=== PATIENT | female | born 1950 | race Caucasian/White ===

== ENCOUNTER → 2018-02-19 | Outpatient (CLI) | payer MEDICARE ==
[~2018-02-19] MED LIST: ASCO500 PO; CALCIT950 PO; CALCIUM/MAG/VIT D PO; CALMAGZIN PO; CHOL10002 PO; CURCUMIN PO; Coq-10100 MG PO; FISH1000 PO; GARLIC OIL PO; HYDCHL50 PO; HYDR1TAB94 PO; Hair, Skin & N1 EACH PO; LECITHIN400 MG PO; LISINOPRIL PO; LOSA50 PO; LOVA40 PO; Lovastatin10 MG PO; MAGOXI400 PO; MELA3 PO; METO25 PO; METO25ER PO; MULVITB&C PO; MULVITMIND PO; NAPR220 PO; NAPR250 PO; NAPR500 PO; NIAC500 PO; NIAC500ER PO; TOCO400 PO; TUMERIC PO; UBID100 PO; VITAMIN B COMPLEX PO; VITAMIN C PO; VITAMIN D PO; XARELTO10 MG PO; [UNRECOGNIZED DRUG - OTHER] PO; [UNRECOGNIZED DRUG - OTHER] PO
[2018-02-21 15:08] LABS: HPV 16 Negative (Negative); HPV 18 Negative (Negative); HPV OTHER HR TYPES Negative (Negative)
== END | disposition home or self-care (01) ==
LOC: LAB SHORT 17:29 → LAB 17:29
PROVIDERS: Nurse Practitioner Women's Health
DX: Z12.72 Encounter for screening for malignant neoplasm of vagina (principal); Z91.89 Other specified personal risk factors, not elsewhere classified
CPT/HCPCS: 87624; G0123

== ENCOUNTER → 2019-04-07 | Outpatient (CLI) | payer MEDICARE ==
[2019-04-08 15:07] LABS: HPV 16 Negative (Negative); HPV 18 Negative (Negative); HPV OTHER HR TYPES Negative (Negative)
== END ==
LOC: LAB SHORT 12:37 → LAB 12:37
PROVIDERS: Nurse Practitioner Women's Health
DX: Z12.72 Encounter for screening for malignant neoplasm of vagina (principal); Z91.89 Other specified personal risk factors, not elsewhere classified
CPT/HCPCS: 87624; G0123

== ENCOUNTER 2025-04-03 01:01 | Day surgery (SDC) | payer MEDICARE ==
[~2025-04-03 01:01] MED LIST changes: +ESTROGEN CREAM VAG
[2025-04-03] MEDS ORDERED: DAPTOmycin 600 MG in NS 50 ML IV SCH (06:00)
[2025-04-03 11:27] VITALS: BP 109/65
[2025-04-03] MEDS ORDERED: ASPI81CH PO (12:08)
[2025-04-03] MEDS ORDERED: ATOR80 PO (12:08)
[2025-04-03] MEDS ORDERED: ELDERBERRY350 MG PO (12:09)
[2025-04-03] MEDS ORDERED: CYCL10 PO (12:09)
[2025-04-03] MEDS ORDERED: CENTRUM SILVER1 EAC2 PO (12:09)
[2025-04-03] MEDS ORDERED: MERIBIN5 MG PO (12:09)
[2025-04-03] MEDS ORDERED: MAGNESIUM OXID500 MG PO (12:10)
[2025-04-03] MEDS ORDERED: UBID10 PO (12:10)
[2025-04-03] MEDS ORDERED: MELATONIN5 M1 PO (12:10)
[2025-04-03] MEDS ORDERED: PROBIOTIC1 EA14 PO (12:10)
[2025-04-03] MEDS ORDERED: VITAMIN B122500 MC1 PO (12:11)
[2025-04-03] MEDS ORDERED: VITAMIN D31250 MC2 PO (12:11)
[2025-04-03] MEDS ORDERED: TURMERIC500 M2 PO (12:11)
[2025-04-03] MEDS ORDERED: SUPER B-50 COM1 EACH PO (12:12)
[2025-04-03] MEDS ORDERED: C COMPLEX1000 M1 PO (12:12)
== END 2025-04-03 11:52 | disposition home or self-care (01) ==
LOC: ATC 01:01
DX: M46.26 Osteomyelitis of vertebra, lumbar region (principal); M48.061 Spinal stenosis, lumbar region without neurogenic claudication; I10 Essential (primary) hypertension; G47.33 Obstructive sleep apnea (adult) (pediatric); E78.5 Hyperlipidemia, unspecified; Z79.82 Long term (current) use of aspirin; Z79.899 Other long term (current) drug therapy; Z88.8 Allergy status to other drugs, medicaments and biological substances
CPT/HCPCS: 96365; J0878

== ENCOUNTER 2025-04-04 08:20 | Day surgery (SDC) | payer MEDICARE ==
[~2025-04-04 08:20] MED LIST changes: +ASPI81CH PO; +ATOR80 PO; +C COMPLEX1000 M1 PO; +CENTRUM SILVER1 EAC2 PO; +CYCL10 PO; +DAPTOmycin 600 MG in NS 50 ML IV SCH; +ELDERBERRY350 MG PO; +MAGNESIUM OXID500 MG PO; +MELATONIN5 M1 PO; +MERIBIN5 MG PO; +PROBIOTIC1 EA14 PO; +SUPER B-50 COM1 EACH PO; +TURMERIC500 M2 PO; +UBID10 PO; +VITAMIN B122500 MC1 PO; +VITAMIN D31250 MC2 PO
[2025-04-04 11:23] VITALS: BP 124/65
== END 2025-04-04 11:49 | disposition home or self-care (01) ==
LOC: ATC 08:20
DX: M46.20 Osteomyelitis of vertebra, site unspecified (principal); M48.062 Spinal stenosis, lumbar region with neurogenic claudication; G47.33 Obstructive sleep apnea (adult) (pediatric); I10 Essential (primary) hypertension; M19.90 Unspecified osteoarthritis, unspecified site; G89.29 Other chronic pain; M54.9 Dorsalgia, unspecified; E78.5 Hyperlipidemia, unspecified; E66.9 Obesity, unspecified; Z79.2 Long term (current) use of antibiotics; Z79.82 Long term (current) use of aspirin; Z79.899 Other long term (current) drug therapy; Z88.8 Allergy status to other drugs, medicaments and biological substances; Z96.653 Presence of artificial knee joint, bilateral; Z98.1 Arthrodesis status
CPT/HCPCS: 96365; J0878

== ENCOUNTER 2025-04-05 00:16 | Day surgery (SDC) | payer MEDICARE ==
[~2025-04-05 00:16] MED LIST changes: -DAPTOmycin 600 MG in NS 50 ML IV SCH
[2025-04-05] MEDS ORDERED: DAPTOmycin 600 MG in NS 50 ML IV SCH (06:00)
[2025-04-05 11:31] VITALS: BP 118/57
== END 2025-04-05 11:50 | disposition home or self-care (01) ==
LOC: ATC 00:16
DX: M46.26 Osteomyelitis of vertebra, lumbar region (principal); M48.062 Spinal stenosis, lumbar region with neurogenic claudication; I10 Essential (primary) hypertension; G47.33 Obstructive sleep apnea (adult) (pediatric); E78.5 Hyperlipidemia, unspecified; M19.90 Unspecified osteoarthritis, unspecified site; E66.9 Obesity, unspecified; Z79.82 Long term (current) use of aspirin; Z79.899 Other long term (current) drug therapy; Z88.8 Allergy status to other drugs, medicaments and biological substances; Z90.710 Acquired absence of both cervix and uterus
CPT/HCPCS: 96365; J0878

== ENCOUNTER 2025-04-06 01:30 | Day surgery (SDC) | payer MEDICARE ==
[2025-04-06] MEDS ORDERED: DAPTOmycin 600 MG in NS 50 ML IV SCH (06:00)
[2025-04-06] MEDS ORDERED: CefTRIAXone Sodium 2,000 MG in NS 100 ML IV SCH (06:00)
[2025-04-06 11:38] VITALS: BP 120/75
== END 2025-04-06 12:01 | disposition home or self-care (01) ==
LOC: ATC 01:30
DX: M46.26 Osteomyelitis of vertebra, lumbar region (principal); E78.5 Hyperlipidemia, unspecified; I10 Essential (primary) hypertension; Z88.8 Allergy status to other drugs, medicaments and biological substances
CPT/HCPCS: 96365; 96368; J0696; J0878

== ENCOUNTER 2025-04-07 00:52 | Day surgery (SDC) | payer MEDICARE ==
[2025-04-07] MEDS ORDERED: CefTRIAXone Sodium 2,000 MG in NS 100 ML IV SCH (01:00)
[2025-04-07] MEDS ORDERED: DAPTOmycin 600 MG in NS 50 ML IV SCH (06:00)
[2025-04-07 11:30] VITALS: BP 135/65
[2025-04-07 12:19] LABS: BASOPHILS ABSOLUTE AUTO 0.07 K/mm3 (0.00-0.23); BASOPHILS PERCENT AUTO 1 % (0-2); EOSINOPHILS ABSOLUTE AUTO 0.27 K/mm3 (0.00-0.68); EOSINOPHILS PERCENT AUTO 4 % (0-6); Hematocrit 31.2 % (33.0-51.0); Hemoglobin 9.9 g/dL (11.5-16.0); IMMATURE GRAN ABSOLUTE AUTO 0.02 K/mm3 (0.00-0.10); IMMATURE GRAN PERCENT AUTO 0 % (0-1); LYMPHOCYTES ABSOLUTE AUTO 1.77 K/mm3 (0.84-5.20); LYMPHOCYTES PERCENT AUTO 25 % (21-46); MONOCYTES ABSOLUTE AUTO 0.58 K/mm3 (0.16-1.47); MONOCYTES PERCENT AUTO 8 % (4-13); Mean Corpuscular HGB Conc 31.7 g/dL (31.5-36.5); Mean Corpuscular Volume 83 fL (80-100); NEUTROPHILS ABSOLUTE AUTO 4.26 K/mm3 (1.96-9.15); NEUTROPHILS PERCENT AUTO 61 % (41-73); NRBC ABSOLUTE 0.00 K/mm3 (0.00-0.02); NRBC Auto 0.0 /100 WBC (0.0-0.2); Platelet Count 358 K/mm3 (150-400); RDW Coefficient Variation 14.1 % (11.7-14.2); RDW Standard Deviation 42.9 fL (35.1-46.3)
[2025-04-07 12:40] LABS: C-REACTIVE PROTEIN, EXT RANGE 0.736 mg/dL (0.000-0.300)
[2025-04-07 12:44] LABS: Alanine Aminotransfer (ALT/SGP 33.0 U/L (12-78); Albumin, Blood 3.2 g/dL (3.4-5.0); Albumin/Globulin Ratio 0.9 (0.8-1.8); Anion Gap 5.0 mmol/L (3-11); Aspartate Aminotrans (AST/SGOT 27.0 U/L (12-37); Bilirubin, Total 0.3 mg/dL (0.1-1.0); Blood Urea Nitrogen 32.0 mg/dL (8-24); CO2, Blood 28.0 mmol/L (21-32); Calcium, Blood 9.7 mg/dL (8.5-10.1); Chloride, Blood 109.0 mmol/L (98-108); Creatinine, Blood 0.74 mg/dL (0.40-1.00); Globulin, Blood 3.5 g/dL (2.2-4.0); Glucose, Blood 100.0 mg/dL (70-99); Potassium, Blood 4.1 mmol/L (3.5-5.5); Sodium, Blood 138.0 mmol/L (136-145); Total Protein, Blood 6.7 g/dL (6.4-8.2)
--- NOTE | 2025-04-07 13:12 | NUR ---
Lab results from today faxed to Dr. Stewart's office.
== END 2025-04-07 11:57 | disposition home or self-care (01) ==
LOC: ATC 00:52
PROVIDERS: Internal Medicine Infectious Disease
DX: M46.26 Osteomyelitis of vertebra, lumbar region (principal); M48.061 Spinal stenosis, lumbar region without neurogenic claudication; I10 Essential (primary) hypertension; G47.33 Obstructive sleep apnea (adult) (pediatric); E78.5 Hyperlipidemia, unspecified; Z79.82 Long term (current) use of aspirin; Z79.899 Other long term (current) drug therapy; Z88.8 Allergy status to other drugs, medicaments and biological substances; Z90.710 Acquired absence of both cervix and uterus
CPT/HCPCS: 80053; 82550; 85025; 86140; 96365; 96368; J0696; J0878

== ENCOUNTER 2025-04-08 03:16 | Day surgery (SDC) | payer MEDICARE ==
[2025-04-08] MEDS ORDERED: CefTRIAXone Sodium 2,000 MG in NS 100 ML IV SCH (08:35)
[2025-04-08] MEDS ORDERED: DAPTOmycin 600 MG in NS 50 ML IV SCH (08:35)
[2025-04-08 11:40] VITALS: BP 113/63
== END 2025-04-08 12:06 | disposition home or self-care (01) ==
LOC: ATC 03:16
DX: M46.20 Osteomyelitis of vertebra, site unspecified (principal); M48.061 Spinal stenosis, lumbar region without neurogenic claudication; G47.33 Obstructive sleep apnea (adult) (pediatric); I10 Essential (primary) hypertension; M19.90 Unspecified osteoarthritis, unspecified site; G89.29 Other chronic pain; M54.9 Dorsalgia, unspecified; E78.5 Hyperlipidemia, unspecified; E66.9 Obesity, unspecified; Z79.82 Long term (current) use of aspirin; Z79.899 Other long term (current) drug therapy; Z88.8 Allergy status to other drugs, medicaments and biological substances; Z96.641 Presence of right artificial hip joint; Z96.653 Presence of artificial knee joint, bilateral; Z98.1 Arthrodesis status
CPT/HCPCS: 96365; 96368; J0696; J0878

== ENCOUNTER 2025-04-09 08:13 | Day surgery (SDC) | payer MEDICARE ==
[~2025-04-09 08:13] MED LIST changes: +CefTRIAXone Sodium 2,000 MG in NS 100 ML IV SCH; +DAPTOmycin 600 MG in NS 50 ML IV SCH
[2025-04-09 11:24] VITALS: BP 133/69
== END 2025-04-09 11:52 | disposition home or self-care (01) ==
LOC: ATC 08:13
DX: M46.26 Osteomyelitis of vertebra, lumbar region (principal); M48.061 Spinal stenosis, lumbar region without neurogenic claudication; I10 Essential (primary) hypertension; E78.5 Hyperlipidemia, unspecified; G47.33 Obstructive sleep apnea (adult) (pediatric); M19.90 Unspecified osteoarthritis, unspecified site; Z79.82 Long term (current) use of aspirin; Z79.899 Other long term (current) drug therapy; Z88.8 Allergy status to other drugs, medicaments and biological substances
CPT/HCPCS: 96365; 96368; J0696; J0878

== ENCOUNTER 2025-04-10 01:44 | Day surgery (SDC) | payer MEDICARE ==
[~2025-04-10 01:44] MED LIST changes: -DAPTOmycin 600 MG in NS 50 ML IV SCH
[2025-04-10] MEDS ORDERED: DAPTOmycin 600 MG in NS 50 ML IV SCH (06:00)
[2025-04-10 11:40] VITALS: BP 121/66
== END 2025-04-10 12:00 | disposition home or self-care (01) ==
LOC: ATC 01:44
DX: M46.20 Osteomyelitis of vertebra, site unspecified (principal); T81.49XA Infection following a procedure, other surgical site, initial encounter; T81.31XA Disruption of external operation (surgical) wound, not elsewhere classified, initial encounter; M48.061 Spinal stenosis, lumbar region without neurogenic claudication; G47.33 Obstructive sleep apnea (adult) (pediatric); I10 Essential (primary) hypertension; Z79.82 Long term (current) use of aspirin; Z79.899 Other long term (current) drug therapy; Z79.1 Long term (current) use of non-steroidal anti-inflammatories (NSAID); Z85.828 Personal history of other malignant neoplasm of skin; Z88.8 Allergy status to other drugs, medicaments and biological substances; Z96.653 Presence of artificial knee joint, bilateral
CPT/HCPCS: 96365; 96368; J0696; J0878

== ENCOUNTER 2025-04-11 00:32 | Day surgery (SDC) | payer MEDICARE ==
[~2025-04-11 00:32] MED LIST changes: -CefTRIAXone Sodium 2,000 MG in NS 100 ML IV SCH
[2025-04-11] MEDS ORDERED: CefTRIAXone Sodium 2,000 MG in NS 100 ML IV SCH (01:00)
[2025-04-11] MEDS ORDERED: DAPTOmycin 600 MG in NS 50 ML IV SCH (06:00)
[2025-04-11 11:30] VITALS: BP 123/68
[2025-04-12] MEDS ORDERED: CEFTRIAXONE2 G1 IV (11:41)
[2025-04-12] MEDS ORDERED: DAPTOMYCIN700 MG/100 IV (11:41)
== END 2025-04-11 11:50 | disposition home or self-care (01) ==
LOC: ATC 00:32
DX: M46.26 Osteomyelitis of vertebra, lumbar region (principal); M48.061 Spinal stenosis, lumbar region without neurogenic claudication; G47.33 Obstructive sleep apnea (adult) (pediatric); I10 Essential (primary) hypertension; G89.29 Other chronic pain; M54.9 Dorsalgia, unspecified; M19.90 Unspecified osteoarthritis, unspecified site; E66.9 Obesity, unspecified; Z79.82 Long term (current) use of aspirin; Z79.899 Other long term (current) drug therapy; Z88.8 Allergy status to other drugs, medicaments and biological substances; Z96.641 Presence of right artificial hip joint; Z96.653 Presence of artificial knee joint, bilateral; Z98.1 Arthrodesis status
CPT/HCPCS: 96365; 96368; J0696; J0878

== ENCOUNTER 2025-04-12 03:49 | Day surgery (SDC) | payer MEDICARE ==
[~2025-04-12 03:49] MED LIST changes: +CefTRIAXone Sodium 2,000 MG in NS 100 ML IV SCH
[2025-04-12] MEDS ORDERED: DAPTOmycin 600 MG in NS 50 ML IV SCH (06:00)
[2025-04-12 11:39] VITALS: BP 117/67
[2025-04-12] MEDS ORDERED: CEFTRIAXONE2 G1 IV (11:41)
[2025-04-12] MEDS ORDERED: DAPTOMYCIN700 MG/100 IV (11:41)
== END 2025-04-12 12:05 | disposition home or self-care (01) ==
LOC: ATC 03:49
DX: M46.26 Osteomyelitis of vertebra, lumbar region (principal); B96.3 Hemophilus influenzae [H. influenzae] as the cause of diseases classified elsewhere; M48.061 Spinal stenosis, lumbar region without neurogenic claudication; G47.33 Obstructive sleep apnea (adult) (pediatric); I10 Essential (primary) hypertension; M19.90 Unspecified osteoarthritis, unspecified site; G89.29 Other chronic pain; M54.9 Dorsalgia, unspecified; E78.5 Hyperlipidemia, unspecified; E66.9 Obesity, unspecified; Z79.82 Long term (current) use of aspirin; Z79.899 Other long term (current) drug therapy; Z88.8 Allergy status to other drugs, medicaments and biological substances; Z96.641 Presence of right artificial hip joint; Z96.653 Presence of artificial knee joint, bilateral; Z98.1 Arthrodesis status
CPT/HCPCS: 96365; 96368; J0696; J0878

== ENCOUNTER 2025-04-13 00:46 | Day surgery (SDC) | payer MEDICARE ==
[~2025-04-13 00:46] MED LIST changes: +CEFTRIAXONE2 G1 IV; -CefTRIAXone Sodium 2,000 MG in NS 100 ML IV SCH; +DAPTOMYCIN700 MG/100 IV
[2025-04-13] MEDS ORDERED: CefTRIAXone Sodium 2,000 MG in NS 100 ML IV SCH (06:00)
[2025-04-13] MEDS ORDERED: DAPTOmycin 600 MG in NS 50 ML IV SCH (06:00)
[2025-04-13 11:31] VITALS: BP 132/70
== END 2025-04-13 12:08 | disposition home or self-care (01) ==
LOC: ATC 00:46
DX: M46.26 Osteomyelitis of vertebra, lumbar region (principal); I10 Essential (primary) hypertension; E78.5 Hyperlipidemia, unspecified
CPT/HCPCS: 96365; 96368; J0696; J0878

== ENCOUNTER 2025-04-14 02:40 | Day surgery (SDC) | payer MEDICARE ==
[2025-04-14] MEDS ORDERED: CefTRIAXone Sodium 2,000 MG in NS 100 ML IV SCH (06:00)
[2025-04-14] MEDS ORDERED: DAPTOmycin 600 MG in NS 50 ML IV SCH (06:00)
[2025-04-14 11:49] VITALS: BP 148/73
[2025-04-14 12:21] LABS: BASOPHILS ABSOLUTE AUTO 0.05 K/mm3 (0.00-0.23); BASOPHILS PERCENT AUTO 1 % (0-2); EOSINOPHILS ABSOLUTE AUTO 0.34 K/mm3 (0.00-0.68); EOSINOPHILS PERCENT AUTO 6 % (0-6); Hematocrit 32.0 % (33.0-51.0); Hemoglobin 9.9 g/dL (11.5-16.0); IMMATURE GRAN ABSOLUTE AUTO 0.01 K/mm3 (0.00-0.10); IMMATURE GRAN PERCENT AUTO 0 % (0-1); LYMPHOCYTES ABSOLUTE AUTO 1.87 K/mm3 (0.84-5.20); LYMPHOCYTES PERCENT AUTO 31 % (21-46); MONOCYTES ABSOLUTE AUTO 0.53 K/mm3 (0.16-1.47); MONOCYTES PERCENT AUTO 9 % (4-13); Mean Corpuscular HGB Conc 30.9 g/dL (31.5-36.5); Mean Corpuscular Volume 83 fL (80-100); NEUTROPHILS ABSOLUTE AUTO 3.34 K/mm3 (1.96-9.15); NEUTROPHILS PERCENT AUTO 54 % (41-73); NRBC ABSOLUTE 0.00 K/mm3 (0.00-0.02); NRBC Auto 0.0 /100 WBC (0.0-0.2); Platelet Count 322 K/mm3 (150-400); RDW Coefficient Variation 14.2 % (11.7-14.2); RDW Standard Deviation 42.3 fL (35.1-46.3)
[2025-04-14 12:48] LABS: Alanine Aminotransfer (ALT/SGP 34.0 U/L (12-78); Albumin, Blood 3.4 g/dL (3.4-5.0); Albumin/Globulin Ratio 1.0 (0.8-1.8); Anion Gap 9.0 mmol/L (3-11); Aspartate Aminotrans (AST/SGOT 26.0 U/L (12-37); Bilirubin, Total 0.3 mg/dL (0.1-1.0); Blood Urea Nitrogen 30.0 mg/dL (8-24); CO2, Blood 27.0 mmol/L (21-32); Calcium, Blood 9.6 mg/dL (8.5-10.1); Chloride, Blood 107.0 mmol/L (98-108); Creatinine, Blood 0.76 mg/dL (0.40-1.00); Globulin, Blood 3.4 g/dL (2.2-4.0); Glucose, Blood 100.0 mg/dL (70-99); Potassium, Blood 3.9 mmol/L (3.5-5.5); Sodium, Blood 139.0 mmol/L (136-145); Total Protein, Blood 6.8 g/dL (6.4-8.2)
--- NOTE | 2025-04-14 17:32 | NUR ---
Lab results from today faxed to Dr. Stewart's office.
== END 2025-04-14 12:15 | disposition home or self-care (01) ==
LOC: ATC 02:40
PROVIDERS: Internal Medicine Infectious Disease
DX: M46.26 Osteomyelitis of vertebra, lumbar region (principal); I10 Essential (primary) hypertension
CPT/HCPCS: 80053; 82550; 85025; 96365; 96368; J0696; J0878

== ENCOUNTER 2025-04-15 07:44 | Day surgery (SDC) | payer MEDICARE ==
[2025-04-15] MEDS ORDERED: CefTRIAXone Sodium 2,000 MG in NS 100 ML IV SCH (08:15)
[2025-04-15] MEDS ORDERED: DAPTOmycin 600 MG in NS 50 ML IV SCH (08:20)
[2025-04-15 11:32] VITALS: BP 128/64
== END 2025-04-15 11:51 | disposition home or self-care (01) ==
LOC: ATC 07:44
DX: M46.26 Osteomyelitis of vertebra, lumbar region (principal); I10 Essential (primary) hypertension; E78.5 Hyperlipidemia, unspecified; G47.33 Obstructive sleep apnea (adult) (pediatric); E66.9 Obesity, unspecified; Z79.82 Long term (current) use of aspirin; Z79.899 Other long term (current) drug therapy; Z88.8 Allergy status to other drugs, medicaments and biological substances; Z90.710 Acquired absence of both cervix and uterus; M48.062 Spinal stenosis, lumbar region with neurogenic claudication
CPT/HCPCS: 96365; 96368; J0696; J0878

== ENCOUNTER 2025-04-16 00:55 | Day surgery (SDC) | payer MEDICARE ==
[2025-04-16] MEDS ORDERED: CefTRIAXone Sodium 2,000 MG in NS 100 ML IV SCH (01:00)
[2025-04-16] MEDS ORDERED: DAPTOmycin 600 MG in NS 50 ML IV SCH (06:00)
[2025-04-16 11:29] VITALS: BP 142/59
== END 2025-04-16 11:51 | disposition home or self-care (01) ==
LOC: ATC 00:55
DX: M46.26 Osteomyelitis of vertebra, lumbar region (principal); M48.062 Spinal stenosis, lumbar region with neurogenic claudication; E78.5 Hyperlipidemia, unspecified; I10 Essential (primary) hypertension; G47.33 Obstructive sleep apnea (adult) (pediatric); M19.90 Unspecified osteoarthritis, unspecified site; E66.9 Obesity, unspecified; Z79.899 Other long term (current) drug therapy; Z88.8 Allergy status to other drugs, medicaments and biological substances
CPT/HCPCS: 96365; 96368; J0696; J0878

== ENCOUNTER 2025-04-17 02:23 | Day surgery (SDC) | payer MEDICARE ==
[~2025-04-17 02:23] MED LIST changes: +CefTRIAXone Sodium 2,000 MG in NS 100 ML IV SCH
[2025-04-17] MEDS ORDERED: DAPTOmycin 600 MG in NS 50 ML IV SCH (06:00)
[2025-04-17 11:33] VITALS: BP 137/68
== END 2025-04-17 11:56 | disposition home or self-care (01) ==
LOC: ATC 02:23
DX: M46.20 Osteomyelitis of vertebra, site unspecified (principal); I10 Essential (primary) hypertension; E66.9 Obesity, unspecified; G47.33 Obstructive sleep apnea (adult) (pediatric); Z79.82 Long term (current) use of aspirin; Z79.899 Other long term (current) drug therapy; Z88.8 Allergy status to other drugs, medicaments and biological substances
CPT/HCPCS: 96365; 96368; J0696; J0878

== ENCOUNTER 2025-04-18 01:55 | Day surgery (SDC) | payer MEDICARE ==
[~2025-04-18 01:55] MED LIST changes: -CefTRIAXone Sodium 2,000 MG in NS 100 ML IV SCH
[2025-04-18] MEDS ORDERED: DAPTOmycin 600 MG in NS 50 ML IV SCH (06:00)
[2025-04-18] MEDS ORDERED: CefTRIAXone Sodium 2,000 MG in NS 100 ML IV SCH (06:00)
[2025-04-18 11:26] VITALS: BP 139/69
== END 2025-04-18 11:51 | disposition home or self-care (01) ==
LOC: ATC 01:55
DX: M46.26 Osteomyelitis of vertebra, lumbar region (principal); M48.062 Spinal stenosis, lumbar region with neurogenic claudication; I10 Essential (primary) hypertension; G47.33 Obstructive sleep apnea (adult) (pediatric); E78.5 Hyperlipidemia, unspecified; E66.9 Obesity, unspecified; Z79.82 Long term (current) use of aspirin; Z79.899 Other long term (current) drug therapy; Z88.8 Allergy status to other drugs, medicaments and biological substances
CPT/HCPCS: 96365; 96368; J0696; J0878

== ENCOUNTER 2025-04-19 01:55 | Day surgery (SDC) | payer MEDICARE ==
[2025-04-19] MEDS ORDERED: CefTRIAXone Sodium 2,000 MG in NS 100 ML IV SCH (06:00)
[2025-04-19] MEDS ORDERED: DAPTOmycin 600 MG in NS 50 ML IV SCH (06:00)
[2025-04-19 11:25] VITALS: BP 139/60
== END 2025-04-19 11:57 | disposition home or self-care (01) ==
LOC: ATC 01:55
DX: M46.26 Osteomyelitis of vertebra, lumbar region (principal); I10 Essential (primary) hypertension; E78.5 Hyperlipidemia, unspecified; Z88.8 Allergy status to other drugs, medicaments and biological substances
CPT/HCPCS: 96365; 96368; J0696; J0878

== ENCOUNTER 2025-04-20 01:48 | Day surgery (SDC) | payer MEDICARE ==
[~2025-04-20 01:48] MED LIST changes: +CefTRIAXone Sodium 2,000 MG in NS 100 ML IV SCH
[2025-04-20] MEDS ORDERED: DAPTOmycin 600 MG in NS 50 ML IV SCH (06:00)
[2025-04-20 11:28] VITALS: BP 129/57
== END 2025-04-20 12:08 | disposition home or self-care (01) ==
LOC: ATC 01:48
DX: M46.26 Osteomyelitis of vertebra, lumbar region (principal); I10 Essential (primary) hypertension; E78.5 Hyperlipidemia, unspecified; G47.33 Obstructive sleep apnea (adult) (pediatric); Z79.899 Other long term (current) drug therapy; Z88.8 Allergy status to other drugs, medicaments and biological substances; Z90.710 Acquired absence of both cervix and uterus; D64.9 Anemia, unspecified; R73.01 Impaired fasting glucose
CPT/HCPCS: 36415; 82728; 83036; 83540; 83550; 85025; 96365; 96368; J0696; J0878

== ENCOUNTER 2025-04-21 00:24 | Day surgery (SDC) | payer MEDICARE ==
[~2025-04-21 00:24] MED LIST changes: -CefTRIAXone Sodium 2,000 MG in NS 100 ML IV SCH
[2025-04-21] MEDS ORDERED: CefTRIAXone Sodium 2,000 MG in NS 100 ML IV SCH (01:00)
[2025-04-21] MEDS ORDERED: DAPTOmycin 600 MG in NS 50 ML IV SCH (06:00)
[2025-04-21 11:30] VITALS: BP 146/60
[2025-04-21 12:52] LABS: BASOPHILS ABSOLUTE AUTO 0.06 K/mm3 (0.00-0.23); BASOPHILS PERCENT AUTO 1 % (0-2); EOSINOPHILS ABSOLUTE AUTO 0.30 K/mm3 (0.00-0.68); EOSINOPHILS PERCENT AUTO 5 % (0-6); Hematocrit 32.2 % (33.0-51.0); Hemoglobin 9.8 g/dL (11.5-16.0); IMMATURE GRAN ABSOLUTE AUTO 0.01 K/mm3 (0.00-0.10); IMMATURE GRAN PERCENT AUTO 0 % (0-1); LYMPHOCYTES ABSOLUTE AUTO 1.59 K/mm3 (0.84-5.20); LYMPHOCYTES PERCENT AUTO 29 % (21-46); MONOCYTES ABSOLUTE AUTO 0.48 K/mm3 (0.16-1.47); MONOCYTES PERCENT AUTO 9 % (4-13); Mean Corpuscular HGB Conc 30.4 g/dL (31.5-36.5); Mean Corpuscular Volume 84 fL (80-100); NEUTROPHILS ABSOLUTE AUTO 3.07 K/mm3 (1.96-9.15); NEUTROPHILS PERCENT AUTO 56 % (41-73); NRBC ABSOLUTE 0.00 K/mm3 (0.00-0.02); NRBC Auto 0.0 /100 WBC (0.0-0.2); Platelet Count 270 K/mm3 (150-400); RDW Coefficient Variation 14.6 % (11.7-14.2); RDW Standard Deviation 44.3 fL (35.1-46.3)
[2025-04-21 13:38] LABS: Alanine Aminotransfer (ALT/SGP 35 U/L (12-78); Albumin, Blood 3.3 g/dL (3.4-5.0); Albumin/Globulin Ratio 1.0 (0.8-1.8); Anion Gap 6 mmol/L (3-11); Aspartate Aminotrans (AST/SGOT 29 U/L (12-37); Bilirubin, Total 0.2 mg/dL (0.1-1.0); Blood Urea Nitrogen 27 mg/dL (8-24); C-REACTIVE PROTEIN, EXT RANGE <0.290 mg/dL (0.000-0.300); CO2, Blood 30 mmol/L (21-32); Calcium, Blood 9.2 mg/dL (8.5-10.1); Chloride, Blood 109 mmol/L (98-108); Creatinine, Blood 0.72 mg/dL (0.40-1.00); Globulin, Blood 3.2 g/dL (2.2-4.0); Glucose, Blood 102 mg/dL (70-99); Potassium, Blood 4.1 mmol/L (3.5-5.5); Sodium, Blood 141 mmol/L (136-145); Total Protein, Blood 6.5 g/dL (6.4-8.2)
== END 2025-04-21 12:03 | disposition home or self-care (01) ==
LOC: ATC 00:24
PROVIDERS: Internal Medicine Infectious Disease
DX: M46.26 Osteomyelitis of vertebra, lumbar region (principal); E78.5 Hyperlipidemia, unspecified; I10 Essential (primary) hypertension; Z88.8 Allergy status to other drugs, medicaments and biological substances; Z79.899 Other long term (current) drug therapy
CPT/HCPCS: 36591; 80053; 82550; 85025; 86140; 96365; 96368; J0696; J0878

== ENCOUNTER 2025-04-22 02:53 | Day surgery (SDC) | payer MEDICARE ==
[~2025-04-22 02:53] MED LIST changes: +CefTRIAXone Sodium 2,000 MG in NS 100 ML IV SCH
[2025-04-22] MEDS ORDERED: DAPTOmycin 600 MG in NS 50 ML IV SCH (06:00)
[2025-04-22 11:34] VITALS: BP 128/72
== END 2025-04-22 11:57 | disposition home or self-care (01) ==
LOC: ATC 02:53
DX: M46.26 Osteomyelitis of vertebra, lumbar region (principal); M48.061 Spinal stenosis, lumbar region without neurogenic claudication; G47.33 Obstructive sleep apnea (adult) (pediatric); I10 Essential (primary) hypertension; G89.29 Other chronic pain; M54.9 Dorsalgia, unspecified; E78.5 Hyperlipidemia, unspecified; M19.90 Unspecified osteoarthritis, unspecified site; E66.9 Obesity, unspecified; Z79.82 Long term (current) use of aspirin; Z79.899 Other long term (current) drug therapy; Z88.8 Allergy status to other drugs, medicaments and biological substances; Z96.653 Presence of artificial knee joint, bilateral; D64.9 Anemia, unspecified
CPT/HCPCS: 82274; 96365; 96368; 99211; J0696; J0878

== ENCOUNTER → 2025-04-22 | Outpatient (CLI) | payer MEDICARE ==
[2025-04-22 14:25] LABS: Stool Occult Bld Immuno 1 Negative (NEGATIVE)
== END | disposition home or self-care (01) ==
LOC: LAB SHORT 07:25 → LAB 07:25
PROVIDERS: Family Medicine
DX: D64.9 Anemia, unspecified (principal)
CPT/HCPCS: 82274

== ENCOUNTER 2025-04-23 01:17 | Day surgery (SDC) | payer MEDICARE ==
[~2025-04-23 01:17] MED LIST changes: -CefTRIAXone Sodium 2,000 MG in NS 100 ML IV SCH
[2025-04-23] MEDS ORDERED: CefTRIAXone Sodium 2,000 MG in NS 100 ML IV SCH (06:00)
[2025-04-23] MEDS ORDERED: DAPTOmycin 600 MG in NS 50 ML IV SCH (06:00)
[2025-04-23 11:25] VITALS: BP 129/74
== END 2025-04-23 11:50 | disposition home or self-care (01) ==
LOC: ATC 01:17
DX: M46.26 Osteomyelitis of vertebra, lumbar region (principal); M48.062 Spinal stenosis, lumbar region with neurogenic claudication; I10 Essential (primary) hypertension; G47.33 Obstructive sleep apnea (adult) (pediatric); M19.90 Unspecified osteoarthritis, unspecified site; E78.5 Hyperlipidemia, unspecified; E66.9 Obesity, unspecified; Z79.82 Long term (current) use of aspirin; Z79.899 Other long term (current) drug therapy; Z88.8 Allergy status to other drugs, medicaments and biological substances; Z90.710 Acquired absence of both cervix and uterus
CPT/HCPCS: 99211; J0696; J0878

== ENCOUNTER 2025-04-24 00:10 | Day surgery (SDC) | payer MEDICARE ==
[2025-04-24] MEDS ORDERED: DAPTOmycin 600 MG in NS 50 ML IV SCH (06:00)
[2025-04-24] MEDS ORDERED: CefTRIAXone Sodium 2,000 MG in NS 100 ML IV SCH (09:25)
[2025-04-24 11:28] VITALS: BP 128/65
== END 2025-04-24 11:48 | disposition home or self-care (01) ==
LOC: ATC 00:10
DX: M46.26 Osteomyelitis of vertebra, lumbar region (principal); M48.062 Spinal stenosis, lumbar region with neurogenic claudication; I10 Essential (primary) hypertension; E78.5 Hyperlipidemia, unspecified; G47.33 Obstructive sleep apnea (adult) (pediatric); Z79.82 Long term (current) use of aspirin; Z79.899 Other long term (current) drug therapy; Z88.8 Allergy status to other drugs, medicaments and biological substances; Z90.710 Acquired absence of both cervix and uterus
CPT/HCPCS: 96365; 96368; J0696; J0878

== ENCOUNTER 2025-04-25 01:30 | Day surgery (SDC) | payer MEDICARE ==
[~2025-04-25 01:30] MED LIST changes: +CefTRIAXone Sodium 2,000 MG in NS 100 ML IV SCH
[2025-04-25] MEDS ORDERED: DAPTOmycin 600 MG in NS 50 ML IV SCH (06:00)
[2025-04-25 11:32] VITALS: BP 122/66
== END 2025-04-25 12:13 | disposition home or self-care (01) ==
LOC: ATC 01:30
DX: M46.26 Osteomyelitis of vertebra, lumbar region (principal); M48.062 Spinal stenosis, lumbar region with neurogenic claudication; I10 Essential (primary) hypertension; E78.5 Hyperlipidemia, unspecified; G47.33 Obstructive sleep apnea (adult) (pediatric); E66.9 Obesity, unspecified; Z79.82 Long term (current) use of aspirin; Z79.899 Other long term (current) drug therapy; Z88.8 Allergy status to other drugs, medicaments and biological substances; Z90.710 Acquired absence of both cervix and uterus
CPT/HCPCS: 96365; 96368; J0696; J0878

== ENCOUNTER 2025-04-26 01:06 | Day surgery (SDC) | payer MEDICARE ==
[2025-04-26] MEDS ORDERED: DAPTOmycin 600 MG in NS 50 ML IV SCH (06:00)
[2025-04-26 11:40] VITALS: BP 121/66
== END 2025-04-26 12:01 | disposition home or self-care (01) ==
LOC: ATC 01:06
DX: M46.20 Osteomyelitis of vertebra, site unspecified (principal); M48.062 Spinal stenosis, lumbar region with neurogenic claudication; M19.90 Unspecified osteoarthritis, unspecified site; E78.5 Hyperlipidemia, unspecified; G47.33 Obstructive sleep apnea (adult) (pediatric); I10 Essential (primary) hypertension; Z79.82 Long term (current) use of aspirin; Z79.899 Other long term (current) drug therapy; Z85.828 Personal history of other malignant neoplasm of skin; Z88.8 Allergy status to other drugs, medicaments and biological substances; Z96.653 Presence of artificial knee joint, bilateral; Z98.1 Arthrodesis status
CPT/HCPCS: 96365; J0696; J0878

== ENCOUNTER 2025-04-27 01:10 | Day surgery (SDC) | payer MEDICARE ==
[~2025-04-27 01:10] MED LIST changes: -CefTRIAXone Sodium 2,000 MG in NS 100 ML IV SCH
[2025-04-27] MEDS ORDERED: CefTRIAXone Sodium 2,000 MG in NS 100 ML IV SCH (06:00)
[2025-04-27] MEDS ORDERED: DAPTOmycin 600 MG in NS 50 ML IV SCH (06:00)
[2025-04-27 11:30] VITALS: BP 152/70
== END 2025-04-27 12:10 | disposition home or self-care (01) ==
LOC: ATC 01:10
DX: M46.26 Osteomyelitis of vertebra, lumbar region (principal); M48.062 Spinal stenosis, lumbar region with neurogenic claudication; I10 Essential (primary) hypertension; G47.33 Obstructive sleep apnea (adult) (pediatric); E78.5 Hyperlipidemia, unspecified; Z79.82 Long term (current) use of aspirin; Z79.899 Other long term (current) drug therapy; Z88.8 Allergy status to other drugs, medicaments and biological substances; Z90.710 Acquired absence of both cervix and uterus
CPT/HCPCS: 96365; 99211; J0696; J0878

== ENCOUNTER 2025-04-28 01:48 | Day surgery (SDC) | payer MEDICARE ==
[~2025-04-28 01:48] MED LIST changes: +CefTRIAXone Sodium 2,000 MG in NS 100 ML IV SCH
[2025-04-28] MEDS ORDERED: DAPTOmycin 600 MG in NS 50 ML IV SCH (06:00)
[2025-04-28 11:30] VITALS: BP 152/76
[2025-04-28 12:03] LABS: BASOPHILS ABSOLUTE AUTO 0.07 K/mm3 (0.00-0.23); BASOPHILS PERCENT AUTO 1 % (0-2); EOSINOPHILS ABSOLUTE AUTO 0.31 K/mm3 (0.00-0.68); EOSINOPHILS PERCENT AUTO 6 % (0-6); Hematocrit 33.6 % (33.0-51.0); Hemoglobin 10.4 g/dL (11.5-16.0); IMMATURE GRAN ABSOLUTE AUTO 0.01 K/mm3 (0.00-0.10); IMMATURE GRAN PERCENT AUTO 0 % (0-1); LYMPHOCYTES ABSOLUTE AUTO 1.90 K/mm3 (0.84-5.20); LYMPHOCYTES PERCENT AUTO 35 % (21-46); MONOCYTES ABSOLUTE AUTO 0.60 K/mm3 (0.16-1.47); MONOCYTES PERCENT AUTO 11 % (4-13); Mean Corpuscular HGB Conc 31.0 g/dL (31.5-36.5); Mean Corpuscular Volume 83 fL (80-100); NEUTROPHILS ABSOLUTE AUTO 2.56 K/mm3 (1.96-9.15); NEUTROPHILS PERCENT AUTO 47 % (41-73); NRBC ABSOLUTE 0.00 K/mm3 (0.00-0.02); NRBC Auto 0.0 /100 WBC (0.0-0.2); Platelet Count 306 K/mm3 (150-400); RDW Coefficient Variation 14.7 % (11.7-14.2); RDW Standard Deviation 44.7 fL (35.1-46.3)
[2025-04-28 12:33] LABS: C-REACTIVE PROTEIN, EXT RANGE <0.290 mg/dL (0.000-0.300)
[2025-04-28 12:48] LABS: Alanine Aminotransfer (ALT/SGP 42 U/L (12-78); Albumin, Blood 3.8 g/dL (3.4-5.0); Albumin/Globulin Ratio 1.2 (0.8-1.8); Anion Gap 5 mmol/L (3-11); Aspartate Aminotrans (AST/SGOT 27 U/L (12-37); Bilirubin, Total 0.4 mg/dL (0.1-1.0); Blood Urea Nitrogen 35 mg/dL (8-24); CO2, Blood 30 mmol/L (21-32); Calcium, Blood 9.4 mg/dL (8.5-10.1); Chloride, Blood 108 mmol/L (98-108); Creatinine, Blood 0.77 mg/dL (0.40-1.00); Globulin, Blood 3.1 g/dL (2.2-4.0); Glucose, Blood 94 mg/dL (70-99); Potassium, Blood 4.1 mmol/L (3.5-5.5); Sodium, Blood 139 mmol/L (136-145); Total Protein, Blood 6.9 g/dL (6.4-8.2)
== END 2025-04-28 12:03 | disposition home or self-care (01) ==
LOC: ATC 01:48
PROVIDERS: Internal Medicine Infectious Disease
DX: M46.26 Osteomyelitis of vertebra, lumbar region (principal); G47.33 Obstructive sleep apnea (adult) (pediatric); I10 Essential (primary) hypertension; M19.90 Unspecified osteoarthritis, unspecified site; G89.29 Other chronic pain; M54.9 Dorsalgia, unspecified; E66.9 Obesity, unspecified; Z79.2 Long term (current) use of antibiotics; Z79.82 Long term (current) use of aspirin; Z79.899 Other long term (current) drug therapy; Z88.8 Allergy status to other drugs, medicaments and biological substances; Z96.653 Presence of artificial knee joint, bilateral; Z98.1 Arthrodesis status; Z98.890 Other specified postprocedural states
CPT/HCPCS: 36591; 80053; 82550; 85025; 86140; 96365; 96368; J0696; J0878

== ENCOUNTER 2025-04-29 02:07 | Day surgery (SDC) | payer MEDICARE ==
[2025-04-29] MEDS ORDERED: DAPTOmycin 600 MG in NS 50 ML IV SCH (06:00)
[2025-04-29 11:42] VITALS: BP 135/67
== END 2025-04-29 12:02 | disposition home or self-care (01) ==
LOC: ATC 02:07
DX: M46.26 Osteomyelitis of vertebra, lumbar region (principal); I10 Essential (primary) hypertension; E78.5 Hyperlipidemia, unspecified; Z88.8 Allergy status to other drugs, medicaments and biological substances; Z79.899 Other long term (current) drug therapy
CPT/HCPCS: 96365; 96368; J0696; J0878

== ENCOUNTER 2025-04-30 00:45 | Day surgery (SDC) | payer MEDICARE ==
[~2025-04-30 00:45] MED LIST changes: -CefTRIAXone Sodium 2,000 MG in NS 100 ML IV SCH
[2025-04-30] MEDS ORDERED: CefTRIAXone Sodium 2,000 MG in NS 100 ML IV SCH (06:00)
[2025-04-30] MEDS ORDERED: DAPTOmycin 600 MG in NS 50 ML IV SCH (06:00)
[2025-04-30 11:24] VITALS: BP 137/78
== END 2025-04-30 12:00 | disposition home or self-care (01) ==
LOC: ATC 00:45
DX: M46.26 Osteomyelitis of vertebra, lumbar region (principal); I10 Essential (primary) hypertension; E78.5 Hyperlipidemia, unspecified; Z88.8 Allergy status to other drugs, medicaments and biological substances; Z79.899 Other long term (current) drug therapy
CPT/HCPCS: 96365; 96368; J0696; J0878

== ENCOUNTER 2025-05-01 03:55 | Day surgery (SDC) | payer MEDICARE ==
[~2025-05-01 03:55] MED LIST changes: +CefTRIAXone Sodium 2,000 MG in NS 100 ML IV SCH
[2025-05-01] MEDS ORDERED: DAPTOmycin 600 MG in NS 50 ML IV SCH (06:00)
[2025-05-01 11:24] VITALS: BP 135/61
== END 2025-05-01 12:00 | disposition home or self-care (01) ==
LOC: ATC 03:55
DX: M46.26 Osteomyelitis of vertebra, lumbar region (principal); M48.062 Spinal stenosis, lumbar region with neurogenic claudication; I10 Essential (primary) hypertension; M19.90 Unspecified osteoarthritis, unspecified site; G47.33 Obstructive sleep apnea (adult) (pediatric); E78.5 Hyperlipidemia, unspecified; E66.9 Obesity, unspecified; Z79.82 Long term (current) use of aspirin; Z79.899 Other long term (current) drug therapy; Z88.8 Allergy status to other drugs, medicaments and biological substances; Z90.710 Acquired absence of both cervix and uterus
CPT/HCPCS: 96365; 96368; J0696; J0878

== ENCOUNTER 2025-05-02 02:29 | Day surgery (SDC) | payer MEDICARE ==
[2025-05-02] MEDS ORDERED: DAPTOmycin 600 MG in NS 50 ML IV SCH (06:00)
[2025-05-02 11:21] VITALS: BP 145/75
== END 2025-05-02 11:57 | disposition home or self-care (01) ==
LOC: ATC 02:29
DX: M46.20 Osteomyelitis of vertebra, site unspecified (principal); M48.062 Spinal stenosis, lumbar region with neurogenic claudication; M19.90 Unspecified osteoarthritis, unspecified site; E78.5 Hyperlipidemia, unspecified; G47.33 Obstructive sleep apnea (adult) (pediatric); I10 Essential (primary) hypertension; Z79.82 Long term (current) use of aspirin; Z79.899 Other long term (current) drug therapy; Z85.828 Personal history of other malignant neoplasm of skin; Z88.4 Allergy status to anesthetic agent; Z88.8 Allergy status to other drugs, medicaments and biological substances; Z96.641 Presence of right artificial hip joint; Z96.653 Presence of artificial knee joint, bilateral; Z98.1 Arthrodesis status
CPT/HCPCS: 96365; 96368; J0696; J0878

== ENCOUNTER 2025-05-03 00:42 | Day surgery (SDC) | payer MEDICARE ==
[~2025-05-03 00:42] MED LIST changes: -CefTRIAXone Sodium 2,000 MG in NS 100 ML IV SCH
[2025-05-03] MEDS ORDERED: CefTRIAXone Sodium 2,000 MG in NS 100 ML IV SCH (01:00)
[2025-05-03] MEDS ORDERED: DAPTOmycin 600 MG in NS 50 ML IV SCH (06:00)
[2025-05-03 11:40] VITALS: BP 141/65
== END 2025-05-03 12:01 | disposition home or self-care (01) ==
LOC: ATC 00:42
DX: M46.26 Osteomyelitis of vertebra, lumbar region (principal); I10 Essential (primary) hypertension; E78.5 Hyperlipidemia, unspecified; Z88.8 Allergy status to other drugs, medicaments and biological substances; Z79.899 Other long term (current) drug therapy
CPT/HCPCS: 96365; 96368; J0696; J0878

== ENCOUNTER 2025-05-04 00:26 | Day surgery (SDC) | payer MEDICARE ==
[2025-05-04] MEDS ORDERED: CefTRIAXone Sodium 2,000 MG in NS 100 ML IV SCH (06:00)
[2025-05-04] MEDS ORDERED: DAPTOmycin 600 MG in NS 50 ML IV SCH (06:00)
[2025-05-04 11:49] VITALS: BP 123/69
== END 2025-05-04 12:10 | disposition home or self-care (01) ==
LOC: ATC 00:26
DX: M46.20 Osteomyelitis of vertebra, site unspecified (principal); I10 Essential (primary) hypertension; E66.9 Obesity, unspecified; Z79.82 Long term (current) use of aspirin; Z88.8 Allergy status to other drugs, medicaments and biological substances; Z79.899 Other long term (current) drug therapy
CPT/HCPCS: 96365; 96368; J0696; J0878

== ENCOUNTER 2025-05-05 07:20 | Day surgery (SDC) | payer MEDICARE ==
[2025-05-05] MEDS ORDERED: DAPTOmycin 600 MG in NS 50 ML IV SCH (07:30)
[2025-05-05] MEDS ORDERED: CefTRIAXone Sodium 2,000 MG in NS 100 ML IV SCH (07:30)
[2025-05-05 11:33] VITALS: BP 121/71
[2025-05-05 11:59] LABS: BASOPHILS ABSOLUTE AUTO 0.06 K/mm3 (0.00-0.23); BASOPHILS PERCENT AUTO 1 % (0-2); EOSINOPHILS ABSOLUTE AUTO 0.33 K/mm3 (0.00-0.68); EOSINOPHILS PERCENT AUTO 6 % (0-6); Hematocrit 33.2 % (33.0-51.0); Hemoglobin 10.4 g/dL (11.5-16.0); IMMATURE GRAN ABSOLUTE AUTO 0.01 K/mm3 (0.00-0.10); IMMATURE GRAN PERCENT AUTO 0 % (0-1); LYMPHOCYTES ABSOLUTE AUTO 1.88 K/mm3 (0.84-5.20); LYMPHOCYTES PERCENT AUTO 34 % (21-46); MONOCYTES ABSOLUTE AUTO 0.61 K/mm3 (0.16-1.47); MONOCYTES PERCENT AUTO 11 % (4-13); Mean Corpuscular HGB Conc 31.3 g/dL (31.5-36.5); Mean Corpuscular Volume 83 fL (80-100); NEUTROPHILS ABSOLUTE AUTO 2.72 K/mm3 (1.96-9.15); NEUTROPHILS PERCENT AUTO 48 % (41-73); NRBC ABSOLUTE 0.00 K/mm3 (0.00-0.02); NRBC Auto 0.0 /100 WBC (0.0-0.2); Platelet Count 308 K/mm3 (150-400); RDW Coefficient Variation 15.4 % (11.7-14.2); RDW Standard Deviation 46.0 fL (35.1-46.3)
[2025-05-05 12:15] LABS: C-REACTIVE PROTEIN, EXT RANGE <0.290 mg/dL (0.000-0.300)
[2025-05-05 12:22] LABS: Alanine Aminotransfer (ALT/SGP 40 U/L (12-78); Albumin, Blood 3.8 g/dL (3.4-5.0); Albumin/Globulin Ratio 1.3 (0.8-1.8); Anion Gap 6 mmol/L (3-11); Aspartate Aminotrans (AST/SGOT 29 U/L (12-37); Bilirubin, Total 0.3 mg/dL (0.1-1.0); Blood Urea Nitrogen 36 mg/dL (8-24); CO2, Blood 27 mmol/L (21-32); Calcium, Blood 9.5 mg/dL (8.5-10.1); Chloride, Blood 109 mmol/L (98-108); Creatinine, Blood 0.81 mg/dL (0.40-1.00); Globulin, Blood 2.9 g/dL (2.2-4.0); Glucose, Blood 100 mg/dL (70-99); Potassium, Blood 4.4 mmol/L (3.5-5.5); Sodium, Blood 138 mmol/L (136-145); Total Protein, Blood 6.7 g/dL (6.4-8.2)
== END 2025-05-05 11:56 | disposition home or self-care (01) ==
LOC: ATC 07:20
PROVIDERS: Internal Medicine Infectious Disease
DX: M46.20 Osteomyelitis of vertebra, site unspecified (principal); I10 Essential (primary) hypertension; G47.33 Obstructive sleep apnea (adult) (pediatric); E66.9 Obesity, unspecified; Z79.82 Long term (current) use of aspirin; Z79.899 Other long term (current) drug therapy; Z88.8 Allergy status to other drugs, medicaments and biological substances
CPT/HCPCS: 36591; 80053; 82550; 85025; 86140; 96365; 96368; J0696; J0878

== ENCOUNTER 2025-05-06 00:56 | Day surgery (SDC) | payer MEDICARE | END 2025-05-06 11:51 | disposition home or self-care (01) | LOC: ATC 00:56 | DX: M46.26 Osteomyelitis of vertebra, lumbar region (principal); M48.062 Spinal stenosis, lumbar region with neurogenic claudication; G47.33 Obstructive sleep apnea (adult) (pediatric); I10 Essential (primary) hypertension; M19.90 Unspecified osteoarthritis, unspecified site; E78.5 Hyperlipidemia, unspecified; E66.9 Obesity, unspecified; Z79.2 Long term (current) use of antibiotics; Z79.82 Long term (current) use of aspirin; Z79.899 Other long term (current) drug therapy; Z88.8 Allergy status to other drugs, medicaments and biological substances; Z96.653 Presence of artificial knee joint, bilateral; Z98.1 Arthrodesis status ==

== ENCOUNTER 2025-05-10 00:37 | Day surgery (SDC) | payer MEDICARE ==
[2025-05-10] MEDS ORDERED: CefTRIAXone Sodium 2,000 MG in NS 100 ML IV SCH (01:00)
[2025-05-10] MEDS ORDERED: DAPTOmycin 600 MG in NS 50 ML IV SCH (06:00)
[2025-05-10 11:34] VITALS: BP 156/73
== END 2025-05-10 12:04 | disposition home or self-care (01) ==
LOC: ATC 00:37
DX: M46.26 Osteomyelitis of vertebra, lumbar region (principal); M48.062 Spinal stenosis, lumbar region with neurogenic claudication; E78.5 Hyperlipidemia, unspecified; I10 Essential (primary) hypertension; G47.33 Obstructive sleep apnea (adult) (pediatric); Z79.82 Long term (current) use of aspirin; Z79.899 Other long term (current) drug therapy; Z88.8 Allergy status to other drugs, medicaments and biological substances
CPT/HCPCS: 96365; 96368; J0696; J0878

== ENCOUNTER 2025-05-11 01:50 | Day surgery (SDC) | payer MEDICARE ==
[2025-05-11] MEDS ORDERED: DAPTOmycin 600 MG in NS 50 ML IV SCH (06:00)
[2025-05-11] MEDS ORDERED: CefTRIAXone Sodium 2,000 MG in NS 100 ML IV SCH (06:00)
[2025-05-11 11:34] VITALS: BP 140/65
[2025-05-12] MEDS ORDERED: IRON EC324 MG PO (11:53)
== END 2025-05-11 11:51 | disposition home or self-care (01) ==
LOC: ATC 01:50
DX: M46.26 Osteomyelitis of vertebra, lumbar region (principal); M48.062 Spinal stenosis, lumbar region with neurogenic claudication; I10 Essential (primary) hypertension; M19.90 Unspecified osteoarthritis, unspecified site; G47.33 Obstructive sleep apnea (adult) (pediatric); E78.5 Hyperlipidemia, unspecified; E66.9 Obesity, unspecified; Z79.82 Long term (current) use of aspirin; Z79.899 Other long term (current) drug therapy; Z88.8 Allergy status to other drugs, medicaments and biological substances; Z90.710 Acquired absence of both cervix and uterus
CPT/HCPCS: 96365; 96368; J0696; J0878

== ENCOUNTER 2025-05-12 06:31 | Day surgery (SDC) | payer MEDICARE ==
[~2025-05-12 06:31] MED LIST changes: +CefTRIAXone Sodium 2,000 MG in NS 100 ML IV SCH; +DAPTOmycin 600 MG in NS 50 ML IV SCH
[2025-05-12 11:51] VITALS: BP 111/65
[2025-05-12] MEDS ORDERED: IRON EC324 MG PO (11:53)
[2025-05-12 12:17] LABS: BASOPHILS ABSOLUTE AUTO 0.06 K/mm3 (0.00-0.23); BASOPHILS PERCENT AUTO 1 % (0-2); EOSINOPHILS ABSOLUTE AUTO 0.22 K/mm3 (0.00-0.68); EOSINOPHILS PERCENT AUTO 5 % (0-6); Hematocrit 32.9 % (33.0-51.0); Hemoglobin 10.1 g/dL (11.5-16.0); IMMATURE GRAN ABSOLUTE AUTO 0.01 K/mm3 (0.00-0.10); IMMATURE GRAN PERCENT AUTO 0 % (0-1); LYMPHOCYTES ABSOLUTE AUTO 1.59 K/mm3 (0.84-5.20); LYMPHOCYTES PERCENT AUTO 33 % (21-46); MONOCYTES ABSOLUTE AUTO 0.48 K/mm3 (0.16-1.47); MONOCYTES PERCENT AUTO 10 % (4-13); Mean Corpuscular HGB Conc 30.7 g/dL (31.5-36.5); Mean Corpuscular Volume 83 fL (80-100); NEUTROPHILS ABSOLUTE AUTO 2.51 K/mm3 (1.96-9.15); NEUTROPHILS PERCENT AUTO 52 % (41-73); NRBC ABSOLUTE 0.00 K/mm3 (0.00-0.02); NRBC Auto 0.0 /100 WBC (0.0-0.2); Platelet Count 282 K/mm3 (150-400); RDW Coefficient Variation 16.1 % (11.7-14.2); RDW Standard Deviation 48.4 fL (35.1-46.3)
[2025-05-12 13:02] LABS: C-REACTIVE PROTEIN, EXT RANGE <0.290 mg/dL (0.000-0.300)
[2025-05-12 13:24] LABS: Alanine Aminotransfer (ALT/SGP 37 U/L (12-78); Albumin, Blood 3.8 g/dL (3.4-5.0); Albumin/Globulin Ratio 1.4 (0.8-1.8); Anion Gap 7 mmol/L (3-11); Aspartate Aminotrans (AST/SGOT 27 U/L (12-37); Bilirubin, Total 0.4 mg/dL (0.1-1.0); Blood Urea Nitrogen 34 mg/dL (8-24); CO2, Blood 27 mmol/L (21-32); Calcium, Blood 9.4 mg/dL (8.5-10.1); Chloride, Blood 108 mmol/L (98-108); Creatinine, Blood 0.90 mg/dL (0.40-1.00); Globulin, Blood 2.7 g/dL (2.2-4.0); Glucose, Blood 93 mg/dL (70-99); Potassium, Blood 4.2 mmol/L (3.5-5.5); Sodium, Blood 138 mmol/L (136-145); Total Protein, Blood 6.5 g/dL (6.4-8.2)
== END 2025-05-12 12:13 | disposition home or self-care (01) ==
LOC: ATC 06:31
PROVIDERS: Internal Medicine Infectious Disease
DX: M46.26 Osteomyelitis of vertebra, lumbar region (principal); M48.062 Spinal stenosis, lumbar region with neurogenic claudication; I10 Essential (primary) hypertension; G47.33 Obstructive sleep apnea (adult) (pediatric); M19.90 Unspecified osteoarthritis, unspecified site; E78.5 Hyperlipidemia, unspecified; E66.9 Obesity, unspecified; Z79.82 Long term (current) use of aspirin; Z79.899 Other long term (current) drug therapy; Z88.8 Allergy status to other drugs, medicaments and biological substances; Z90.710 Acquired absence of both cervix and uterus
CPT/HCPCS: 36591; 80053; 85025; 86140; 96365; 96368; J0696; J0878

== ENCOUNTER 2025-05-13 00:47 | Day surgery (SDC) | payer MEDICARE ==
[~2025-05-13 00:47] MED LIST changes: -CefTRIAXone Sodium 2,000 MG in NS 100 ML IV SCH; -DAPTOmycin 600 MG in NS 50 ML IV SCH; +IRON EC324 MG PO
[2025-05-13] MEDS ORDERED: CefTRIAXone Sodium 2,000 MG in NS 100 ML IV SCH (01:00)
[2025-05-13] MEDS ORDERED: DAPTOmycin 600 MG in NS 50 ML IV SCH (06:00)
[2025-05-13 11:27] VITALS: BP 135/77
== END 2025-05-13 11:48 | disposition home or self-care (01) ==
LOC: ATC 00:47
DX: M46.26 Osteomyelitis of vertebra, lumbar region (principal); M48.062 Spinal stenosis, lumbar region with neurogenic claudication; I10 Essential (primary) hypertension; G47.33 Obstructive sleep apnea (adult) (pediatric); M19.90 Unspecified osteoarthritis, unspecified site; E78.5 Hyperlipidemia, unspecified; E66.9 Obesity, unspecified; Z79.82 Long term (current) use of aspirin; Z79.899 Other long term (current) drug therapy; Z88.8 Allergy status to other drugs, medicaments and biological substances
CPT/HCPCS: 96365; 96368; J0696; J0878

== ENCOUNTER 2025-05-14 01:21 | Day surgery (SDC) | payer MEDICARE ==
[~2025-05-14 01:21] MED LIST changes: +CefTRIAXone Sodium 2,000 MG in NS 100 ML IV SCH
[2025-05-14] MEDS ORDERED: DAPTOmycin 600 MG in NS 50 ML IV SCH (06:00)
[2025-05-14 11:31] VITALS: BP 114/76
== END 2025-05-14 11:50 | disposition home or self-care (01) ==
LOC: ATC 01:21
DX: M46.26 Osteomyelitis of vertebra, lumbar region (principal); E78.5 Hyperlipidemia, unspecified; I10 Essential (primary) hypertension; Z79.899 Other long term (current) drug therapy; Z88.8 Allergy status to other drugs, medicaments and biological substances
CPT/HCPCS: 96365; 96368; J0696; J0878

== ENCOUNTER 2025-05-15 11:19 | Day surgery (SDC) | payer MEDICARE ==
[~2025-05-15 11:19] MED LIST changes: +DAPTOmycin 600 MG in NS 50 ML IV SCH
[2025-05-15 11:25] VITALS: BP 150/77
== END 2025-05-15 11:56 | disposition home or self-care (01) ==
LOC: ATC 11:19
DX: M46.26 Osteomyelitis of vertebra, lumbar region (principal); M48.062 Spinal stenosis, lumbar region with neurogenic claudication; I10 Essential (primary) hypertension; G47.33 Obstructive sleep apnea (adult) (pediatric); E78.5 Hyperlipidemia, unspecified; M19.90 Unspecified osteoarthritis, unspecified site; E66.9 Obesity, unspecified; Z79.82 Long term (current) use of aspirin; Z79.899 Other long term (current) drug therapy; Z88.8 Allergy status to other drugs, medicaments and biological substances; Z90.710 Acquired absence of both cervix and uterus
CPT/HCPCS: 96365; 96368; J0696; J0878

== ENCOUNTER 2025-05-16 02:11 | Day surgery (SDC) | payer MEDICARE ==
[~2025-05-16 02:11] MED LIST changes: -CefTRIAXone Sodium 2,000 MG in NS 100 ML IV SCH; -DAPTOmycin 600 MG in NS 50 ML IV SCH
[2025-05-16] MEDS ORDERED: DAPTOmycin 600 MG in NS 50 ML IV SCH (06:00)
[2025-05-16] MEDS ORDERED: CefTRIAXone Sodium 2,000 MG in NS 100 ML IV SCH (06:00)
[2025-05-16 11:30] VITALS: BP 155/66
== END 2025-05-16 12:06 | disposition home or self-care (01) ==
LOC: ATC 02:11
DX: M46.26 Osteomyelitis of vertebra, lumbar region (principal); B96.3 Hemophilus influenzae [H. influenzae] as the cause of diseases classified elsewhere; M48.061 Spinal stenosis, lumbar region without neurogenic claudication; G47.33 Obstructive sleep apnea (adult) (pediatric); I10 Essential (primary) hypertension; M19.90 Unspecified osteoarthritis, unspecified site; E78.5 Hyperlipidemia, unspecified; E66.9 Obesity, unspecified; Z79.82 Long term (current) use of aspirin; Z79.899 Other long term (current) drug therapy; Z88.8 Allergy status to other drugs, medicaments and biological substances
CPT/HCPCS: 96365; 96368; J0696; J0878

== ENCOUNTER 2025-05-17 00:20 | Day surgery (SDC) | payer MEDICARE ==
[2025-05-17] MEDS ORDERED: CefTRIAXone Sodium 2,000 MG in NS 100 ML IV SCH (01:00)
[2025-05-17] MEDS ORDERED: DAPTOmycin 600 MG in NS 50 ML IV SCH (06:00)
[2025-05-17 11:27] VITALS: BP 130/70
== END 2025-05-17 12:00 | disposition home or self-care (01) ==
LOC: ATC 00:20
DX: M46.26 Osteomyelitis of vertebra, lumbar region (principal); E78.5 Hyperlipidemia, unspecified; I10 Essential (primary) hypertension; Z88.8 Allergy status to other drugs, medicaments and biological substances; Z79.899 Other long term (current) drug therapy
CPT/HCPCS: 96365; 96368; J0696; J0878

== ENCOUNTER 2025-05-18 01:24 | Day surgery (SDC) | payer MEDICARE ==
[2025-05-18] MEDS ORDERED: CefTRIAXone Sodium 2,000 MG in NS 100 ML IV SCH (06:00)
[2025-05-18] MEDS ORDERED: DAPTOmycin 600 MG in NS 50 ML IV SCH (06:00)
[2025-05-18 11:25] VITALS: BP 133/71
== END 2025-05-18 11:58 | disposition home or self-care (01) ==
LOC: ATC 01:24
DX: M46.26 Osteomyelitis of vertebra, lumbar region (principal); M48.062 Spinal stenosis, lumbar region with neurogenic claudication; I10 Essential (primary) hypertension; G47.33 Obstructive sleep apnea (adult) (pediatric); E78.5 Hyperlipidemia, unspecified; Z79.82 Long term (current) use of aspirin; Z79.899 Other long term (current) drug therapy; Z88.8 Allergy status to other drugs, medicaments and biological substances; Z90.710 Acquired absence of both cervix and uterus
CPT/HCPCS: 96365; 96368; J0696; J0878

== ENCOUNTER 2025-05-19 01:27 | Day surgery (SDC) | payer MEDICARE ==
[~2025-05-19 01:27] MED LIST changes: +CefTRIAXone Sodium 2,000 MG in NS 100 ML IV SCH
[2025-05-19] MEDS ORDERED: DAPTOmycin 600 MG in NS 50 ML IV SCH (06:00)
[2025-05-19 11:36] VITALS: BP 121/71
[2025-05-19 11:52] LABS: BASOPHILS ABSOLUTE AUTO 0.06 K/mm3 (0.00-0.23); BASOPHILS PERCENT AUTO 1 % (0-2); EOSINOPHILS ABSOLUTE AUTO 0.32 K/mm3 (0.00-0.68); EOSINOPHILS PERCENT AUTO 6 % (0-6); Hematocrit 34.4 % (33.0-51.0); Hemoglobin 11.0 g/dL (11.5-16.0); IMMATURE GRAN ABSOLUTE AUTO 0.01 K/mm3 (0.00-0.10); IMMATURE GRAN PERCENT AUTO 0 % (0-1); LYMPHOCYTES ABSOLUTE AUTO 1.84 K/mm3 (0.84-5.20); LYMPHOCYTES PERCENT AUTO 33 % (21-46); MONOCYTES ABSOLUTE AUTO 0.60 K/mm3 (0.16-1.47); MONOCYTES PERCENT AUTO 11 % (4-13); Mean Corpuscular HGB Conc 32.0 g/dL (31.5-36.5); Mean Corpuscular Volume 83 fL (80-100); NEUTROPHILS ABSOLUTE AUTO 2.84 K/mm3 (1.96-9.15); NEUTROPHILS PERCENT AUTO 50 % (41-73); NRBC ABSOLUTE 0.00 K/mm3 (0.00-0.02); NRBC Auto 0.0 /100 WBC (0.0-0.2); Platelet Count 270 K/mm3 (150-400); RDW Coefficient Variation 16.4 % (11.7-14.2); RDW Standard Deviation 50.0 fL (35.1-46.3)
[2025-05-19 12:23] LABS: Alanine Aminotransfer (ALT/SGP 41 U/L (12-78); Albumin, Blood 3.8 g/dL (3.4-5.0); Albumin/Globulin Ratio 1.2 (0.8-1.8); Anion Gap 7 mmol/L (3-11); Aspartate Aminotrans (AST/SGOT 33 U/L (12-37); Bilirubin, Total 0.4 mg/dL (0.1-1.0); Blood Urea Nitrogen 29 mg/dL (8-24); C-REACTIVE PROTEIN, EXT RANGE <0.290 mg/dL (0.000-0.300); CO2, Blood 28 mmol/L (21-32); Calcium, Blood 9.3 mg/dL (8.5-10.1); Chloride, Blood 107 mmol/L (98-108); Creatinine, Blood 0.76 mg/dL (0.40-1.00); Globulin, Blood 3.1 g/dL (2.2-4.0); Glucose, Blood 98 mg/dL (70-99); Potassium, Blood 4.0 mmol/L (3.5-5.5); Sodium, Blood 138 mmol/L (136-145); Total Protein, Blood 6.9 g/dL (6.4-8.2)
--- NOTE | 2025-05-19 18:00 | NUR ---
Lab results from today faxed to Dr. Stewart's office.
== END 2025-05-19 12:04 | disposition home or self-care (01) ==
LOC: ATC 01:27
PROVIDERS: Internal Medicine Infectious Disease
DX: M46.20 Osteomyelitis of vertebra, site unspecified (principal); I10 Essential (primary) hypertension; E78.5 Hyperlipidemia, unspecified; G47.33 Obstructive sleep apnea (adult) (pediatric); E06.9 Thyroiditis, unspecified; Z79.82 Long term (current) use of aspirin; Z79.899 Other long term (current) drug therapy; Z88.8 Allergy status to other drugs, medicaments and biological substances
CPT/HCPCS: 36591; 80053; 82550; 85025; 86140; 96365; 99211; J0696; J0878

== ENCOUNTER 2025-05-20 00:48 | Day surgery (SDC) | payer MEDICARE ==
[~2025-05-20 00:48] MED LIST changes: -CefTRIAXone Sodium 2,000 MG in NS 100 ML IV SCH
[2025-05-20] MEDS ORDERED: CefTRIAXone Sodium 2,000 MG in NS 100 ML IV SCH (01:00)
[2025-05-20] MEDS ORDERED: DAPTOmycin 600 MG in NS 50 ML IV SCH (06:00)
[2025-05-20 11:33] VITALS: BP 126/71
== END 2025-05-20 11:51 | disposition home or self-care (01) ==
LOC: ATC 00:48
DX: M46.20 Osteomyelitis of vertebra, site unspecified (principal); I10 Essential (primary) hypertension; G47.33 Obstructive sleep apnea (adult) (pediatric); E66.9 Obesity, unspecified; Z79.82 Long term (current) use of aspirin; Z79.899 Other long term (current) drug therapy; Z88.8 Allergy status to other drugs, medicaments and biological substances
CPT/HCPCS: 96365; 96368; J0696; J0878

== ENCOUNTER 2025-05-21 01:08 | Day surgery (SDC) | payer MEDICARE ==
[2025-05-21] MEDS ORDERED: DAPTOmycin 600 MG in NS 50 ML IV SCH (06:00)
[2025-05-21] MEDS ORDERED: CefTRIAXone Sodium 2,000 MG in NS 100 ML IV SCH (06:00)
[2025-05-21 11:35] VITALS: BP 154/68
== END 2025-05-21 12:03 | disposition home or self-care (01) ==
LOC: ATC 01:08
DX: M46.26 Osteomyelitis of vertebra, lumbar region (principal); I10 Essential (primary) hypertension; E78.5 Hyperlipidemia, unspecified; Z88.8 Allergy status to other drugs, medicaments and biological substances; Z79.899 Other long term (current) drug therapy
CPT/HCPCS: 96365; 96368; J0696; J0878

== ENCOUNTER 2025-05-22 01:02 | Day surgery (SDC) | payer MEDICARE ==
[2025-05-22] MEDS ORDERED: DAPTOmycin 600 MG in NS 50 ML IV SCH (06:00)
[2025-05-22] MEDS ORDERED: CefTRIAXone Sodium 2,000 MG in NS 100 ML IV SCH (06:00)
[2025-05-22 11:32] VITALS: BP 126/67
== END 2025-05-22 11:53 | disposition home or self-care (01) ==
LOC: ATC 01:02
DX: M46.20 Osteomyelitis of vertebra, site unspecified (principal); I10 Essential (primary) hypertension; E78.5 Hyperlipidemia, unspecified; G47.33 Obstructive sleep apnea (adult) (pediatric); Z79.82 Long term (current) use of aspirin; Z79.899 Other long term (current) drug therapy; Z88.8 Allergy status to other drugs, medicaments and biological substances
CPT/HCPCS: 96365; 96368; J0696; J0878

== ENCOUNTER 2025-05-23 04:09 | Day surgery (SDC) | payer MEDICARE ==
[~2025-05-23 04:09] MED LIST changes: +CefTRIAXone Sodium 2,000 MG in NS 100 ML IV SCH
[2025-05-23] MEDS ORDERED: DAPTOmycin 600 MG in NS 50 ML IV SCH (06:00)
[2025-05-23 11:31] VITALS: BP 124/67
== END 2025-05-23 11:50 | disposition home or self-care (01) ==
LOC: ATC 04:09
DX: M46.26 Osteomyelitis of vertebra, lumbar region (principal); M48.061 Spinal stenosis, lumbar region without neurogenic claudication; G47.33 Obstructive sleep apnea (adult) (pediatric); I10 Essential (primary) hypertension; G89.29 Other chronic pain; M54.9 Dorsalgia, unspecified; E66.9 Obesity, unspecified; Z79.82 Long term (current) use of aspirin; Z79.899 Other long term (current) drug therapy; Z88.8 Allergy status to other drugs, medicaments and biological substances; Z96.641 Presence of right artificial hip joint; Z96.653 Presence of artificial knee joint, bilateral; Z98.1 Arthrodesis status
CPT/HCPCS: 96365; 96368; J0696; J0878

== ENCOUNTER 2025-05-24 02:35 | Day surgery (SDC) | payer MEDICARE ==
[2025-05-24] MEDS ORDERED: DAPTOmycin 600 MG in NS 50 ML IV SCH (09:00)
[2025-05-24 11:37] VITALS: BP 144/70
--- NOTE | 2025-05-24 12:36 | NUR ---
OBSERVED PATIENT FOR 20 MINUTES AFTER DC OF PICC LINE. NO BLEEDING NOTED, PT DENIES COMPLAINTS AND STATES THAT SHE IS READY TO GO HOME. EDUCATION PROVIDED FOR FIRST 24 HOUR CARE.
== END 2025-05-24 12:25 | disposition home or self-care (01) ==
LOC: ATC 02:35
DX: M46.26 Osteomyelitis of vertebra, lumbar region (principal); I10 Essential (primary) hypertension; E78.5 Hyperlipidemia, unspecified; Z88.8 Allergy status to other drugs, medicaments and biological substances; Z79.899 Other long term (current) drug therapy
CPT/HCPCS: 96365; 96368